=== PATIENT | female | born 1970 | race Caucasian/White ===

== ENCOUNTER 2018-07-19 22:43 | Emergency (ER) | payer BC ==
[2018-07-19 23:36] LABS: Urine Appearance Clear; Urine Bilirubin Negative (Negative); Urine Blood Negative (Negative); Urine Color Straw; Urine Glucose 3+(>=500 mg/dL) (Negative); Urine Ketones Negative (Negative); Urine Nitrite Negative (Negative); Urine Protein Negative (Negative); Urine Specific Gravity 1.011 (1.010-1.030); Urine Urobilinogen Negative (Negative)
--- NOTE | 2018-07-19 23:54 | ED ---
Psychiatric Complaint - HPI Summary HPI Summary: Pt is a 48 y/o F presenting to the ED brought in by the [place] [employer] for an overdose. She was reportedly brought in because she had been talking about bills and the intention to hurt herself, and then she did take the pills that she had around 1899. She takes Triseba for her IDDM and Synthroid for her thyroid. She called a friend and told them about her overdose , who presumably called the police. At bedside, the pt states Im a diabetic, somethings gonna kill me sooner or later. Who gives a shit if I live? She also reports alcohol use tonight. She denies any current myalgia or fever, as well as any current SI. - History Of Current Complaint Chief Complaint: EDSuicidal Time Seen by Provider: 07/19/18 23:23 Accompanied By: alone Hx Obtained From: Patient Onset/Duration: Gradual Onset, Lasting Hours, Resolved Timing: Hours Severity Initially: Moderate Severity Currently: None Character: Depressed Aggravating Factor(s): Recent Stress - complications with marriage Alleviating Factor(s): Nothing Has Suicidal: Denies: Thoughts Recent Stressor(s): complications with marriage Ingestion History: Type/Name Of Drug - synthroid, possibly other medications, Amount Ingested - unsure, Approximate Time Of Ingestion - 1899 - Allergies/Home Medications Allergies/Adverse Reactions: Allergies Allergy/AdvReac Type Severity Reaction Status Date / Time insulin aspart Allergy Anaphylatic Verified 07/19/18 22:50 [From Novolog U-100 Insulin Shock aspart] Home Medications: Home Medications Levothyroxine Sodium [Synthroid] 150 tab PO DAILY WITH MEAL 07/19/18 [History Confirmed 07/19/18] Insulin Degludec [Tresiba Flextouch U-100] 32 units SUBCUT DAILY WITH MEAL 07/20 [History Confirmed 07/20/18] PMH/Surg Hx/FS Hx/Imm Hx Previously Healthy: Yes Endocrine/Hematology History: Reports: Hx Diabetes Cardiovascular History: Denies: Hx Hypertension Infectious Disease History: No Infectious Disease History: Denies: Traveled Outside the [place] in Last 30 Days - Family History Known Family History: Negative: Renal Disease - Social History Alcohol Use: Occasionally Hx Substance Use: No Substance Use Type: Reports: None Hx Tobacco Use: Yes Smoking Status (MU): Heavy Every Day Tobacco Smoker Review of Systems Negative: Fever Negative: Myalgia All Other Systems Reviewed And Are Negative: Yes Physical Exam - Summary Physical Exam Summary: Appearance: Well-appearing, Well-nourished, lying in bed comfortably Skin: Warm, dry, no obvious rash Eyes: sclera anicteric, no conjunctival pallor ENT: mucous membranes moist, pharynx appears normal Neck: Supple, nontender Respiratory: Clear to auscultation, no signs of respiratory distress Cardiovascular: Normal S1, S2. No murmurs. Normal distal pulses in tibial and radial bilaterally. Abdomen: Soft, nontender, normal active bowel sounds present Musculoskeletal: Normal, Strength/ROM Intact Neurological: A&Ox3, awake and alert, mentation is normal, speech is fluent and appropriate Psychiatric: affect is normal, does not appear anxious or depressed Triage Information Reviewed: Yes Vital Signs On Initial Exam: Initial Vitals Temp Pulse Resp BP Pulse Ox 98.5 F 113 18 142/78 95 07/19/18 22:46 07/19/18 22:46 07/19/18 22:46 07/19/18 22:46 07/19/18 22:46 Vital Signs Reviewed: Yes Diagnostics - Vital Signs Vital Signs Temp Pulse Resp BP Pulse Ox 07/19/18 22:46 98.5 F 113 18 142/78 95 - Laboratory Lab Results: Lab Results 07/19/18 Range/Units 23:05 Urine Color Straw Urine Appearance Clear Urine pH 5.0 (5-9) Ur Specific [place] 1.011 (1.010-1.030) Urine Protein Negative (Negative) Urine Ketones Negative (Negative) Urine Blood Negative (Negative) Urine Nitrate Negative (Negative) Urine Bilirubin Negative (Negative) Urine Urobilinogen Negative (Negative) Ur Leukocyte Esterase Negative (Negative) Urine Glucose 3+(>=500 mg/dl) A (Negative) Result Diagrams: 07/19/18 23:50 07/19/18 23:50 Lab Statement: Any lab studies that have been ordered have been reviewed, and results considered in the medical decision making process. - EKG 0216 Cardiac Rate: NL - 75bpm EKG Rhythm: Sinus Rhythm ST Segment: Normal Ectopy: None Summary of EKG Findings: NSR at 75 BPM, P waves, QRS complex, and T waves are within normal limits, T waves and intervals are normal, no ischemic changes. Re-Evaluation - Re-Evaluation 1st re-eval Change: Unchanged Course/Dx - Course Course Of Treatment: Pt is a 48 y/o F presenting to the ED brought in by the [place] [employer] for an overdose. She took synthroid around 1900, is unsure of what other medications or how much. She called a friend and told them about her overdose, who presumably called the police. At bedside, the pt states Im a diabetic, somethings gonna kill me sooner or later. Who gives a shit if I live? She also reports alcohol use tonight. She denies any current myalgia or fever, as well as current SI. EKG at 0216 shows NSR at 75 BPM, P waves, QRS complex, and T waves are within normal limits, T waves and intervals are normal , no ischemic changes. As of 528, Dr. Aaron would like the pt to be admitted to [facility]. Since there are no beds available, the pt will be transferred to a different psychiatric facility with a dx of depressive episode. The pt will be signed out to Dr. Bryant at shift change pending transfer to another psychiatric facility. - Differential Dx/Clinical Impression Provider Diagnosis: Substance abuse Discharge - Sign-Out/Discharge Documenting (check all that apply): Sign-Out Patient Signing out patient TO: Willard Bryant Patient Received Moderate/Deep Sedation with Procedure: No - Discharge Plan Condition: Stable Disposition: HOME Referrals: Chris SOTO,Andrzej Olivarez [Primary Care Provider] - - Billing Disposition and Condition Condition: STABLE Disposition: Home - Attestation Statements Document Initiated by Scribe: Yes Documenting Scribe: Carolee Billy Provider For Whom nAnette is Documenting (Include Credential): Willard Olson MD. Scribe Attestation: Carolee Rodarte, scribed for Willard Olson MD. on 07/21/18 at 0241. Scribe Documentation Reviewed: Yes Provider Attestation: The documentation as recorded by the Carolee lopez accurately reflects the service I personally performed and the decisions made by me, Willard Olson MD. Status of Scribe Document: Viewed
[2018-07-19 23:59] LABS: ABS Basophils 0 10^3/ul (0-0.2); ABS Eosinophils 0.1 10^3/ul (0-0.6); ABS Lymphocytes 1.2 10^3/ul (1.0-4.8); ABS Monocytes 0.6 10^3/ul (0-0.8); ABS Neutrophils 4.1 10^3/ul (1.5-7.7); ABS Nucleated RBC 0 10^3/ul; Hematocrit 43 % (33-41); Hemoglobin 14.5 g/dL (12.0-16.0); Lymphocyte % 20.7 %; Mean Corpuscular HGB Conc 34 g/dL (31-36); Mean Corpuscular Hemoglobin 33 pg (27-31); Mean Corpuscular Volume 96 fL (80-97); Mean Platelet Volume 7.8 fL (7.4-10.4); Nucleated Red Blood Cells % 0; Platelet Count 344 10^3/uL (150-450); Red Blood Count 4.47 10^6 /uL (3.70-4.87); Red Cell Distribution Width 14 % (10.5-15)
[2018-07-20 00:11] LABS: Urine Benzodiazepine Screen None Detected (None Detect); Urine Opiates Screen None Detected (None Detect)
[2018-07-20 00:19] LABS: ALT 10 U/L (7-52); AST 9 U/L (13-39); Albumin 4.2 g/dL (3.2-5.2); Albumin/Globulin Ratio 1.6 (1-3); Alkaline Phosphatase 64 U/L (34-104); Anion Gap 9 mmol/L (2-11); Blood Urea Nitrogen 6 mg/dL (6-24); CO2 Carbon Dioxide 25 mmol/L (22-32); Calcium 9.2 mg/dL (8.6-10.3); Chloride 101 mmol/L (101-111); EGFR African American 129.7 (>60); EGFR Non-African American 107.2 (>60); Globulin 2.7 g/dL (2-4); Glucose 478 mg/dL (70-100); Potassium 4.2 mmol/L (3.5-5.0); Sodium 135 mmol/L (135-145); Total Protein 6.9 g/dL (6.4-8.9)
[2018-07-20 00:23] LABS: Acetaminophen < 15 mcg/mL; Alcohol 197 mg/dL (<10); Salicylate < 2.50 mg/dL (<30)
[2018-07-20] MEDS ORDERED: Insulin REGULAR(*) 1 UNITS UNIT SUBCUT ONE (00:59)
[2018-07-20] MEDS ORDERED: Insulin GLARGINE(*) 1 UNITS UNIT SUBCUT ONE (01:00)
--- NOTE | 2018-07-20 07:09 | ED ---
Progress - Progress Note Progress Note: This patient was signed out from Dr. Olson to Dr. Bryant upon physician shift change pending transfer to another psychiatric facility. - Consult/PCP Time Called: 01:50 Re-Evaluation - Re-Evaluation 1st re-eval Re-Evaluation Time: 01:04 Change: Unchanged Comment: The pt is medically clear for MHE. Course/Dx - Course Course Of Treatment: Ms. Carranza underwent a mental health eval and they felt that she was stable for discharge. - Diagnoses Provider Diagnoses: Substance abuse - Provider Notifications Discussed Care Of Patient With: Tal Aaron Time Discussed With Above Provider: 09:04 Instructed by Provider To: Other - Dr. Aaron, psychiatrist, recommends the patient be discharged home. Dx substance abuse. Discharge - Sign-Out/Discharge Documenting (check all that apply): Patient Departure - discharge home, Receiving Sign-Out Receiving patient FROM: Willard Olson Patient Received Moderate/Deep Sedation with Procedure: No - Discharge Plan Condition: Stable Disposition: HOME Referrals: Chris SOTO,Andrzej Olivarez [Primary Care Provider] - - Billing Disposition and Condition Condition: STABLE Disposition: Home - Attestation Statements Document Initiated by Scribe: Yes Documenting Scribe: Kelly Rodriguez Provider For Whom Scribe is Documenting (Include Credential): Willard Bryant MD Scribe Attestation: Kelly Rodarte, esthered for Willard Bryant MD on 07/20/18 at 1351. Scribe Documentation Reviewed: Yes Provider Attestation: The documentation as recorded by the scribeKelly accurately reflects the service I personally performed and the decisions made by me, Willard Bryant MD Status of Scribe Document: Viewed
[2018-07-20 09:26] VITALS: BP 90/60
== END 2018-07-20 09:25 | disposition home or self-care (01) ==
LOC: ED 22:43
DX: T38.1X2A Poisoning by thyroid hormones and substitutes, intentional self-harm, initial encounter (principal); T50.992A Poisoning by other drugs, medicaments and biological substances, intentional self-harm, initial encounter; Y92.9 Unspecified place or not applicable; E11.9 Type 2 diabetes mellitus without complications; F17.210 Nicotine dependence, cigarettes, uncomplicated
CPT/HCPCS: 36415; 80053; 80307; 80320; 80329; 81003; 84443; 85025; 93005; 96372; 99285; G0480